=== PATIENT | female | born 1970 | race African-American/Black ===

== ENCOUNTER 2019-03-14 16:57 | Emergency (ER) | payer MEDICAID ==
[~2019-03-14] VITALS: Ht 160 cm; Wt 72.0 kg
[2019-03-14] MEDS ORDERED: MORPHINE SULFATE 4 MG/ML CPJ (NOT FOR IM USE) IV STA (18:53)
[2019-03-14] MEDS ORDERED: ONDANSETRON HCL 4MG/2ML INJ IV STA (18:53)
[2019-03-14] MEDS ORDERED: SODIUM CHLORIDE 0.9% 1,000 ML IV ONE (18:53)
[2019-03-14 19:45] LABS: BASOPHILS % 0.9 % (0.0-2.0); EOSINOPHILS % 0.9 % (0.0-5.0); HEMATOCRIT. 33.3 % (36.0-48.0); HEMOGLOBIN. 10.7 g/dL (12.0-16.0); LYMPHOCYTES % 21.4 % (20.0-50.0); MEAN CORPUSCULAR HEMOGLOBIN 26.2 pg (28.0-32.0); MEAN CORPUSCULAR VOLUME 81.3 fL (81.0-99.0); MEAN PLATELET VOLUME 8.8 fl (7.4-10.4); MONOCYTES % 7.4 % (2.0-8.0); NEUTROPHILS % 69.4 % (40.0-76.0); PLATELET 223 x1000/uL (130-400); RED BLOOD CELL COUNT 4.09 mill/uL (4.2-5.4); RED CELL DISTRIBUTION WIDTH 20.9 % (11.6-14.6)
[2019-03-14 19:52] LABS: CHLORIDE 106 mEq/L (98-107)
[2019-03-14 19:56] LABS: ETHANOL BLOOD < 10 mg/dL
[2019-03-14 19:57] LABS: HCG SCREEN NEGATIVE; PROTHROMBIN TIME 10.1 sec (9.6-11.0)
[2019-03-14 20:00] LABS: CREATINE KINASE 547 IU/L (26-192)
[2019-03-14 20:03] LABS: CREATINE KINASE MB FRACTION 3.1 ng/mL (0.5-3.6)
[2019-03-14 20:41] LABS: CLARITY URINE CLEAR (CLEAR); COLOR URINE YELLOW (YELLOW); KETONES URINE NEGATIVE (NEGATIVE); LEUKOCYTE ESTERASE URINE 2+ (NEGATIVE); NITRITE URINE NEGATIVE (NEGATIVE); OCCULT BLOOD URINE NEGATIVE (NEGATIVE); PH URINE 5.5 (4.5-8.0); PROTEIN URINE NEGATIVE (NEGATIVE); SPECIFIC GRAVITY URINE 1.013 (1.005-1.030); UROBILINOGEN URINE 0.2 E.U./dL (0.2-1.0)
[2019-03-14 21:12] LABS: *AMPHETAMINES SCREEN URINE NEGATIVE (NEGATIVE)
[2019-03-14 21:13] LABS: *BARBITURATES SCREEN URINE NEGATIVE (NEGATIVE); *BENZODIAZEPINES SCREEN URINE NEGATIVE (NEGATIVE); METHADONE URINE SCREEN NEGATIVE (NEGATIVE); OPIATES URINE SCREEN NEGATIVE (NEGATIVE); PHENCYCLIDINE URINE SCREEN NEGATIVE (NEGATIVE)
[2019-03-14 21:17] LABS: *COCAINE SCREEN URINE PRESUMTIVE POSITIVE (NEGATIVE); CANNABINOID URINE SCREEN PRESUMTIVE POSITIVE (NEGATIVE)
[2019-03-14 23:00] VITALS: BP 113/74
== END 2019-03-14 23:44 | disposition home or self-care (01) ==
LOC: ER 16:57
DX: T40.5X1A Poisoning by cocaine, accidental (unintentional), initial encounter (principal); R00.2 Palpitations; R53.1 Weakness; N39.0 Urinary tract infection, site not specified; Y92.89 Other specified places as the place of occurrence of the external cause; J45.909 Unspecified asthma, uncomplicated; I10 Essential (primary) hypertension
CPT/HCPCS: 36415; 80053; 80305; 80320; 81003; 82550; 82553; 83690; 83880; 84443; 84484; 84703; 85025; 85610; 93005; 96361; 96374; 99284; J2405; J7030; G0480

== ENCOUNTER 2019-04-09 15:47 | Emergency (ER) | payer MEDICAID ==
[~2019-04-09] VITALS: Ht 165.1 cm; Wt 91.0 kg
[2019-04-09 15:49] VITALS: BP 102/68
== END 2019-04-10 00:12 | disposition left against medical advice (07) ==
LOC: ER 15:47
DX: Z53.21 Procedure and treatment not carried out due to patient leaving prior to being seen by health care provider (principal)

== ENCOUNTER 2020-10-01 09:17 | Emergency (ER) | payer MEDICAID ==
[~2020-10-01] VITALS: Ht 162.6 cm; Wt 100.0 kg
[2020-10-01] MEDS ORDERED: HYDROCODONE/ACETAMINOPHEN 5/325MG TABLET PO STA (09:42)
[2020-10-01 11:30] LABS: BASOPHILS % 0.6 % (0.0-2.0); EOSINOPHILS % 4.5 % (0.0-5.0); HEMATOCRIT. 33.1 % (36.0-48.0); HEMOGLOBIN. 10.2 g/dL (12.0-16.0); LYMPHOCYTES % 46.8 % (20.0-50.0); MEAN CORPUSCULAR HEMOGLOBIN 24.7 pg (28.0-32.0); MEAN CORPUSCULAR VOLUME 80.4 fL (81.0-99.0); MEAN PLATELET VOLUME 8.8 fl (7.4-10.4); MONOCYTES % 6.2 % (2.0-8.0); NEUTROPHILS % 41.9 % (40.0-76.0); PLATELET 207 x1000/uL (130-400); RED BLOOD CELL COUNT 4.12 mill/uL (4.2-5.4)
[2020-10-01 11:41] LABS: CHLORIDE 109 mEq/L (98-107)
[2020-10-01 11:46] LABS: HCG SCREEN NEGATIVE
[2020-10-01] MEDS ORDERED: IOHEXOL-350 100 ML BOTTLE ONE (14:40)
[2020-10-01] MEDS ORDERED: HYDROCODONE/ACETAMINOPHEN 5/325MG TABLET PO NR (15:00)
[2020-10-01] MEDS ORDERED: CYCL5TAB MT (15:21)
[2020-10-01 16:22] VITALS: BP 149/90
== END 2020-10-01 16:25 | disposition home or self-care (01) ==
LOC: ER 09:34
DX: G62.9 Polyneuropathy, unspecified (principal); F12.10 Cannabis abuse, uncomplicated; I10 Essential (primary) hypertension; J45.909 Unspecified asthma, uncomplicated
CPT/HCPCS: 36415; 71045; 71275; 80053; 81025; 83880; 84484; 84703; 85025; 85379; 93005; 99285; J7040; Q9967; Z7610

== ENCOUNTER 2022-02-21 08:04 | Emergency (ER) | payer MEDICAID, OTHER ==
[~2022-02-21] VITALS: Ht 157.5 cm; Wt 91.0 kg
[~2022-02-21 08:04] MED LIST: CYCL5TAB MT
[2022-02-21 08:08] VITALS: BP 188/100
[2022-02-21] MEDS ORDERED: IBUPROFEN 400MG TABLET PO NR (09:30)
[2022-02-21] MEDS ORDERED: ACETAMINOPHEN 325MG TABLET PO NR (09:30)
== END 2022-02-21 09:05 | disposition home or self-care (01) ==
LOC: ER 08:28
DX: M25.511 Pain in right shoulder (principal); F12.10 Cannabis abuse, uncomplicated; M54.2 Cervicalgia; I10 Essential (primary) hypertension; J45.909 Unspecified asthma, uncomplicated
CPT/HCPCS: 99283

== ENCOUNTER 2022-05-22 11:27 | Emergency (ER) | payer MEDICAID, OTHER ==
[~2022-05-22] VITALS: Ht 167.6 cm; Wt 82.0 kg
[2022-05-22] MEDS ORDERED: ONDANSETRON HCL 4MG/2ML INJ IV STA ×2 (12:00→16:28)
[2022-05-22] MEDS ORDERED: MORPHINE SULFATE 4 MG/ML CPJ (NOT FOR IM USE) IV STA ×2 (12:00→16:28)
[2022-05-22] MEDS ORDERED: SODIUM CHLORIDE 0.9% 1000ML BAG (SEPSIS BOLUS) IV ONE (12:00)
[2022-05-22] MEDS ORDERED: PIPERACILLIN/TAZ 3.375G PREMIX 50 ML IV ONE (12:00)
[2022-05-22] MEDS ORDERED: VANCOMYCIN 1G PREMIX 200 ML IV ONE (12:00)
[2022-05-22 13:03] LABS: BASOPHILS % 0.4 % (0.0-2.0); CHLORIDE 103 mEq/L (98-107); EOSINOPHILS % 1.1 % (0.0-5.0); HEMATOCRIT. 26.2 % (36.0-48.0); HEMOGLOBIN. 8.4 g/dL (12.0-16.0); LYMPHOCYTES % 17.1 % (20.0-50.0); MEAN CORPUSCULAR HEMOGLOBIN 25.1 pg (28.0-32.0); MEAN CORPUSCULAR VOLUME 78.3 fL (81.0-99.0); MEAN PLATELET VOLUME 7.7 fl (7.4-10.4); MONOCYTES % 7.5 % (2.0-8.0); NEUTROPHILS % 73.9 % (40.0-76.0); PLATELET 694 x1000/uL (130-400); RED BLOOD CELL COUNT 3.34 mill/uL (4.2-5.4); RED CELL DISTRIBUTION WIDTH 17.3 % (11.6-14.6)
[2022-05-22 13:09] LABS: CLARITY URINE CLOUDY (CLEAR); COLOR URINE DARK YELLOW (YELLOW); KETONES URINE TRACE (NEGATIVE); LEUKOCYTE ESTERASE URINE 1+ (NEGATIVE); NITRITE URINE NEGATIVE (NEGATIVE); OCCULT BLOOD URINE NEGATIVE (NEGATIVE); PROTEIN URINE 1+ (NEGATIVE); SPECIFIC GRAVITY URINE 1.028 (1.005-1.030)
[2022-05-22 13:19] LABS: PROTHROMBIN TIME 11.1 sec (9.6-11.0)
[2022-05-22 13:59] LABS: HCG SCREEN NEGATIVE
[2022-05-22] MEDS ORDERED: IOHEXOL-300 100 ML BOTTLE ONE (16:01)
[2022-05-22] MEDS ORDERED: ONDANSETRON HCL 4MG/2ML INJ IV ONE (19:15)
[2022-05-22] MEDS: MORPHINE SULFATE 4 MG/ML CPJ (NOT FOR IM USE) IV SCH ×2 (19:30→23:15)
[2022-05-22] MEDS ORDERED: NALOXONE HCL 0.4MG/ML VIAL IV PRN (23:45)
[2022-05-23] MEDS ORDERED: T3 PO (00:35)
[2022-05-23] MEDS ORDERED: CEPH500C2 MT (00:35)
[2022-05-23 01:17] VITALS: BP 119/74
== END 2022-05-23 01:30 | disposition short-term general hospital (02) ==
LOC: ER 11:27 → CANBEDREQ 05-24 10:08
DX: L02.211 Cutaneous abscess of abdominal wall (principal); J45.909 Unspecified asthma, uncomplicated; F31.9 Bipolar disorder, unspecified; I10 Essential (primary) hypertension; Z90.710 Acquired absence of both cervix and uterus; F12.10 Cannabis abuse, uncomplicated; Z20.822 Contact with and (suspected) exposure to COVID-19
CPT/HCPCS: 36415; 71045; 74177; 80053; 81003; 81025; 83605; 83690; 83880; 84145; 84484; 84703; 85025; 85610; 87040; 87086; 87426; 93005; 96365; 96366; 96368; 96375; 96376; 99285; J2270; J2405; J2543; J3370; J7030; Q9967